=== PATIENT | female | born 1995 | race Two or more races ===

== ENCOUNTER 2022-05-30 18:39 | Emergency (ER) | payer OTHER ==
[~2022-05-30] VITALS: Ht 160 cm; Wt 49.9 kg
== END 2022-05-30 22:09 | disposition home or self-care (01) ==
LOC: ER 18:39
DX: T78.40XA Allergy, unspecified, initial encounter (principal); X58.XXXA Exposure to other specified factors, initial encounter; Y92.9 Unspecified place or not applicable